=== PATIENT | male | born 1990 | race Hispanic/Latino ===

== ENCOUNTER 2023-02-12 21:18 | Emergency (ER) | payer BC ==
[2023-02-12] MEDS ORDERED: hydrOXYzine 25 MG TAB ONE ×2 (22:49→22:51)
[2023-02-12] MEDS ORDERED: Ondansetron ODT 4 MG TAB ONE (22:49)
[2023-02-12 23:17] LABS: #Basophils 0.1 10x3/uL (0.0-0.2); #Monocytes 0.7 10x3/uL (0.0-1.1); #Neutrophils 9.9 10x3/uL (1.5-8.4); %Basophils 0.5 % (0.0-2.0); %Monocytes 5.7 % (0.0-10.0); %Neutrophils 77.6 % (40.0-75.0); Hemoglobin 15.5 g/dL (13.5-17.5); Mean Corpuscular HGB CONC 32.2 g/dL (32.0-36.0); Mean Corpuscular Hemoglobin 26.8 pg (27.0-33.0); Mean Corpuscular Volume 83.1 fl (81.2-95.1); Mean Platelet Volume 8.7 fl (7.4-10.4); Platelet Count 330 10x3/uL (150-450); Red Blood Cell (RBC) Count 5.79 10x6/uL (4.32-5.72); White Blood Cell (WBC) Count 12.7 10x3/uL (3.5-10.5)
[2023-02-12 23:29] LABS: Anion Gap 18 mmol/L (10-20); BUN (Urea Nitrogen) 13 mg/dL (8.9-20.6); Calc. Creatinine Clearance 0 mL/min (70-130); Carbon Dioxide 22 mmol/L (22-29); Chloride 104 mmol/L (98-107); Potassium 4.1 mmol/L (3.5-5.1); Sodium 140 mmol/L (136-145)
[2023-02-12 23:30] LABS: ALT (SGPT) 27 U/L (8-55); AST (SGOT) 31 U/L (5-34); Albumin 4.9 g/dL (3.5-5.0); Alkaline Phosphatase 100 U/L (40-110); Bilirubin, Total 0.5 mg/dL (0.2-1.2); CK (CPK) 493 U/L (30-200); Estimated GFR 79; Globulin 3.4 g/dL (2.4-3.5); Glucose 134 mg/dL (70-105); Protein, Total 8.3 g/dL (6.0-8.3)
== END 2023-02-12 23:56 | disposition home or self-care (01) ==
LOC: CSHERS 21:18
DX: F41.1 Generalized anxiety disorder (principal); L29.9 Pruritus, unspecified; R11.0 Nausea
CPT/HCPCS: 80053; 82550; 85025; 99283; Q0162